=== PATIENT | female | born 1955 | race Caucasian/White ===

== ENCOUNTER → 2016-11-13 | Outpatient (CLI) | payer BC | END | disposition home or self-care (01) | LOC: C.PAPS 09:28 | PROVIDERS: ATTEND Obstetrics & Gynecology | DX: Z01.419 Encounter for gynecological examination (general) (routine) without abnormal findings (principal) ==

== ENCOUNTER → 2016-12-17 | Outpatient (CLI) | payer BC | END | disposition home or self-care (01) | LOC: C.PATHSPEC 10:57 | PROVIDERS: ATTEND Obstetrics & Gynecology | DX: N95.0 Postmenopausal bleeding (principal) ==

== ENCOUNTER → 2017-05-06 | Outpatient (CLI) | payer BC ==
--- NOTE | 2017-05-06 12:39 | MAMMOGRAPHY REPORT ---
BILATERAL DIGITAL SCREENING MAMMOGRAM WITH CAD: 05/06/2017 CLINICAL HISTORY: Routine screening. Patient has no complaints. TECHNIQUE: Bilateral CC and MLO views were obtained. Current study was also evaluated with a Compute r Aided Detection (CAD) system. COMPARISON: Comparison is made to exams dated: 04/19/2016 mammogram, 04/17/2015 mammogram, 02/03/2014 ma mmogram, 01/27/2013 mammogram, 01/22/2012 mammogram, and 01/14/2011 mammogram - [facility]ter. BREAST COMPOSITION: The tissue of both breasts is heterogeneously dense, which may obscure small mas ses. FINDINGS: There are faint grouped microcalcifications in the superior posterior left breast on the M LO view, thought to project laterally on the CC view. Additional spot magnification views are recomm ended. There is possible architectural distortion in the far superior left breast on the MLO view, w arranting additional spot compression tomosynthesis views and possible ultrasound. An asymmetry in t he anterior right breast along the posterior nipple line on the CC view also warrant additional spot compression tomosynthesis views and possibly ultrasound. No other suspicious mass, architectural distortion or cluster of microcalcifications is seen zhenga rhonda. IMPRESSION: ACR BI-RADS CATEGORY 0: INCOMPLETE EVALUATION: NEED ADDITIONAL IMAGING EVALUATION The microcalcifications in the superior posterior left breast, right breast asymmetry and left superi or possible distortion need additional imaging evaluation. The patient will be called to schedule an appointment. Approximately 10% of breast cancers are not detected with mammography. A negative mammographic report should not delay biopsy if a clinically suggestive mass is present. Venice Celeste M.D. ay/:05/06/2017 08:59:51 Financial Advisor: Mari ATKINS(R)(Vanita)(BD), [facility] letter sent: Addl Imaging 0 BI-RADS Code: ACR BI-RADS Category 0: Incomplete Evaluation: Need Additional Imaging Evaluation
== END | disposition home or self-care (01) ==
LOC: C.MAMM 08:19
PROVIDERS: ATTEND Obstetrics & Gynecology
DX: Z12.31 Encounter for screening mammogram for malignant neoplasm of breast (principal); R92.0 Mammographic microcalcification found on diagnostic imaging of breast; R92.8 Other abnormal and inconclusive findings on diagnostic imaging of breast

== ENCOUNTER → 2017-05-12 | Outpatient (CLI) | payer BC ==
--- NOTE | 2017-05-12 15:53 | MAMMOGRAPHY REPORT ---
BILATERAL DIGITAL DIAGNOSTIC MAMMOGRAM TOMOSYNTHESIS AND TARGETED RIGHT ULTRASOUND: 05/12/2017 CLINICAL HISTORY: 61-year-old woman called back from screening mammography for left superior microcal cifications, possible left superior distortion and right breast asymmetry. Family history of breast cancer = sister. TECHNIQUE: Spot magnification left CC, ML, spot compression 2-D and tomosynthesis right CC and left M LO views were obtained. COMPARISON: Comparison is made to exams dated: 05/06/2017 mammogram, 04/19/2016 mammogram, 04/17/2015 ma mmogram, 02/03/2014 mammogram, 01/27/2013 mammogram, and 01/22/2012 mammogram - [facility]. BREAST COMPOSITION: The tissue of both breasts is heterogeneously dense, which may obscure small mas ses. FINDINGS: There are 2 adjacent groupings of amorphous microcalcifications in the superior posterior left breast, best seen on the spot magnification ML view. The larger grouping measures 2.8 mm in max imum dimension and the smaller grouping of approximately 2 microcalcifications is located 5 mm superi or to the first. These might calcifications were not clearly seen on any available prior mammograms and are therefore indeterminate. Definitive characterization with a stereotactic guided biopsy is re commended. They are not definitively identified on the CC projection, but thought to project lateral ly based on the tomosynthesis localizer bar from the spot compression MLO view. The possible architectural distortion in the superior breast on the MLO full-field view effaces on th e supplemental spot compression 2-D and tomosynthesis images, confirming overlapping fibrolinear lorenzo ings. There is partial effacement of the asymmetry in the anterior right breast, 2.5 cm distal to the nippl e. No persistent mass or persistent architectural distortion is seen on the supplemental spot compre ssion right CC view or tomosynthesis images. Further evaluation with ultrasound was performed. Targeted ultrasound was performed in the right breast medial aspect including the 12:00, retroareolar and 6:00 axes. Sonographically normal fibrolinear tissue is seen without a discrete solid or cystic mass. IMPRESSION: ACR BI-RADS CATEGORY 4B: INTERMEDIATE SUSPICION FOR MALIGNANCY, TARGETED ULTRASOUND ACR BI-RADS CATEGORY 4B: INTERMEDIATE SUSPICION FOR MALIGNANCY 1. Left breast stereotactic guided biopsy is recommended for small groupings of amorphous microcalci fications in the superior, posterior breast. These results and recommendations were discussed with t he patient at the time of the exam. A biopsy is recommended given that the microcalcifications are n ew and she also has a strong family history of breast cancer, sister. The patient discussed with me that she is unsure if she wants to undergo a biopsy and may prefer to watch the calcifications; she w ill call our office to schedule her follow-up appointment. 2. The possible architectural distortion in the superior left breast and asymmetry in the right rg st effaces with additional supplemental mammographic views. Additionally, no suspicious sonographic correlate was seen in the right breast. These findings are considered benign likely represented over lapping fibroglandular tissue. These results and recommendations were discussed with the patient at the time of the exam. Approximately 10% of breast cancers are not detected with mammography. A negative mammographic report should not delay biopsy if a clinically suggestive mass is present. Venice Celeste M.D. ay/:05/12/2017 12:21:37 [employer] [place] Former: Janice ATKINS(R)(M), [facility] letter sent: Abnormal 4/5 BI-RADS Code: ACR BI-RADS Category 4B: Intermediate Suspicion For Malignancy Ultrasound BI-RADS: ACR BI-RADS Category 4B: Intermediate Suspicion For Malignancy
== END | disposition home or self-care (01) ==
LOC: C.MAMM 11:15
PROVIDERS: ATTEND Obstetrics & Gynecology
DX: R92.0 Mammographic microcalcification found on diagnostic imaging of breast (principal); Z80.3 Family history of malignant neoplasm of breast

== ENCOUNTER → 2017-12-10 | Outpatient (CLI) | payer OTHER | END | disposition home or self-care (01) | LOC: C.PAPS 11:40 | PROVIDERS: ATTEND Obstetrics & Gynecology | DX: Z01.419 Encounter for gynecological examination (general) (routine) without abnormal findings (principal) ==